=== PATIENT | female | born 1950 | race Caucasian/White ===

== ENCOUNTER 2022-06-28 05:54 | Inpatient (IN) ==
--- NOTE | 2022-06-21 10:53 | Anesthesiology Consultation ---
Date of Service June 21, 2022 Assessment & Plan (1) Encounter for pre-operative examination: - awaiting cardiology optimization note. - check BSG am DOS. - abnormal pre-op EKG dated 04/11/22, same date as cardio evaluation below. Pt reported dyspnea with exertion with stairs per PAT wildlife conservation officer call. Case discussed with Dr. Olmstead who advised sending optimization note to cardiology to confirm if patient is acceptable to proceed or if further evaluation/testing needed prior to surgery. - cardiology 04/27/22: "...we have evaluated Eliana Monday preoperatively on 04/11/2022...may hold her Xarelto for 3 days before her urology procedure...restart it as soon as possible..." - COVID screening: Per property assessment monitor on 06/20/2022: Travel screen negative. Now more than 10 days from symptom onset, reports symptoms have resolved. Negative home test, pt did not complete PCR test. Chart Review Chart Review: Pending: Refer to Additional Notes / Consult section and Patient NOT seen in Pre Admission Testing History Surgery Operation Date: 06/28/22 07:30 Proposed Procedures p Robotic assisted Abdominal Sacrocolpopexy, Possible Anterior and Posterior Repair, - Luis Manuel Willis MD s Possible Mid Urethral Sling Placement - Luis Manuel Willis MD Height/Weight Height: 5 ft Weight: 74.843 kg Allergies Allergy/AdvReac Type Severity Reaction Status Date / Time lanolin AdvReac Unknown Rash Verified 06/20/22 10:06 augmentin AdvReac Unknown Hives Uncoded 06/20/22 10:06 plantain weed AdvReac Unknown Rash Uncoded 06/20/22 10:06 Medications Home Medications Medication Instructions Recorded Confirmed Last Taken Lactobacillus acidophilus 1 10 mg PO QAM 03/14/22 06/20/22 Unknown billion cell capsule amitriptyline 25 mg tablet 25 mg PO QPM 03/14/22 06/20/22 Unknown atorvastatin 10 mg tablet 10 mg PO QPM 03/14/22 06/20/22 Unknown blood sugar diagnostic (Contour 03/14/22 03/14/22 Unknown Next Test Strips) cholecalciferol (vitamin D3) 125 50,000 unit PO QAM 03/14/22 06/20/22 Unknown mcg (5,000 unit) capsule dapagliflozin 10 mg tablet 10 mg PO QAM 03/14/22 06/20/22 Unknown (Farxiga) ezetimibe 10 mg tablet (Zetia) 10 mg PO QPM 03/14/22 06/20/22 Unknown flecainide 100 mg tablet 100 mg PO BID 03/14/22 06/20/22 Unknown fluticasone 100 mcg-salmeterol 50 1 inh inhalation BID PRN Shortness 03/14/22 06/20/22 Unknown mcg/dose blistr powdr for Of Breath Or Wheezing inhalation (Advair Diskus) fluticasone propionate 50 1 spray intranasal UD PRN Allergy 03/14/22 06/20/22 Unknown mcg/actuation nasal Symptoms spray,suspension (Children's Flonase Allergy Relief) glimepiride 2 mg tablet 2 mg PO BID 03/14/22 06/20/22 Unknown hydrocortisone 2.5 % topical cream 1 applic topical BID PRN Skin 03/14/22 06/20/22 Unknown Irritation insulin detemir U-100 100 unit/mL 100 unit subcut BID 03/14/22 06/20/22 Unknown (3 mL) subcutaneous pen (Levemir FlexTouch U-100 Insulin) ketoconazole 2 % topical cream 1 applic topical DAILY PRN Rash 03/14/22 06/20/22 Unknown levothyroxine 50 mcg capsule 50 mcg PO QAM 03/14/22 06/20/22 Unknown losartan 25 mg tablet 25 mg PO QPM 03/14/22 06/20/22 Unknown metoprolol succinate 100 mg 100 mg PO QPM 03/14/22 06/20/22 Unknown tablet,extended release 24 hr (Toprol XL) montelukast 10 mg tablet 10 mg PO QPM 03/14/22 06/20/22 Unknown multivitamin 1 tab PO QAM 03/14/22 06/20/22 Unknown omeprazole 20 mg capsule,delayed 20 mg PO QAM 03/14/22 06/20/22 Unknown release rivaroxaban 20 mg tablet (Xarelto) 20 mg PO QPM 03/14/22 06/20/22 Unknown azithromycin 500 mg tablet 500 mg PO QAM 06/20/22 06/20/22 Unknown (Zithromax) liraglutide 0.6 mg/0.1 mL (18 mg/3 1.8 mg subcut QPM 06/20/22 06/20/22 Unknown mL) subcutaneous pen injector (Victoza 3-Manuel) Past Medical History Medical History (Updated 06/21/22 @ 11:02 by Keila Mcgill PA-C) Asthma well controlled, has not used advair in 2 yrs Bladder prolapse Cystocele Degenerative lumbar disc Fibromyalgia GERD (gastroesophageal reflux disease) HTN (hypertension) Hx of atrial flutter follows w/ Dr Box [facility] last visit ? 2021 Hypothyroidism IBS (irritable bowel syndrome) Lumbar spinal stenosis On anticoagulant therapy xarelto daily Sinus infection 06/17/22 ON ZITHROMAX FOR SINUS INFECTION- SYMPTOMS RESOLVED Sleep apnea cpap Type 2 diabetes mellitus IDDM Urinary incontinence Past Family History Family History Mother Diabetes Lupus Heart disease Brother Pancreatic cancer Heart disease Diabetes Daughter Thyroid disease Father Myocardial infarction Heart disease Past Surgical History Surgical History H/O colonoscopy H/O: hysterectomy History of carpal tunnel release RIGHT Hx of cataract extraction Hx of sinus surgery Hx of tonsillectomy Hx of tubal ligation Social History Smoking Status: Former smoker tobacco type: cigarettes Do You Dip or Chew Tobacco: No Smoking End Date: "QUIT MANY YRS AGO" Hx Alcohol Use: Yes alcohol intake frequency: holidays/special occasions only Hx Substance Use: No substance use type: does not use Lab Results Anesthesia Preop Results Results Anesthesia Widget: WBC 10.15 K/uL (4.8-10.8) 04/28/22 Hgb 12.5 g/dL (12.0-16.0) 04/28/22 Hct 38.9 % (37.0-47.0) 04/28/22 Plt 354 K/uL (130.0-400.0) 04/28/22 Na 133 mmol/L L 04/28/22 K 4.5 mmol/L (3.5-5.1) 04/28/22 Cl 102 mmol/L (98-107) 04/28/22 CO2 26.0 mmol/L (21-32) 04/28/22 BUN 19.9 mg/dL H 04/28/22 Creat 0.67 mg/dL (0.6-1.2) 04/28/22 Glucose Level 98 mg/dL (70-99) 04/28/22 Urine Color Other 04/28/22 Urine Appearance Clear 04/28/22 Urine pH 5.5 (4.5-7.5) 04/28/22 Urine Specific [place] 1.013 (1.000-1.030) 04/28/22 Urine Protein Negative 04/28/22 Urine Glucose (UA) Negative 04/28/22 Urine Ketones Negative 04/28/22 Urine Blood Negative 04/28/22 Urine Nitrite Negative 04/28/22 Urine Bilirubin Negative 04/28/22 Urine Leukocyte Esterase Trace 04/28/22 Testing Electrocardiogram Date: 04/11/22 Sinus rhythm with 1st degree AV block, rate [address] & T wave abnormality, consider anterior ischemia Chest X-Ray Date: 04/28/22 No acute cardiopulmonary findings Mild left lower lung atelectasis or scarring Echocardiogram Date: 02/12/19 EF 56% Mild LVH Normal LV wall motion No valve pathology Stress Test Date: 02/13/19 Pharmacologic No evidence of ischemic change or old myocardial infarct EF 64% Normal LV wall motion
[2022-06-28] MEDS ORDERED: ceFAZolin 2000MG 2,000 MG/15 ML SYR IV SCH ×2 (06:00→17:00)
[2022-06-28] MEDS ORDERED: LR 15ML/HR IV SCH (06:00)
--- NOTE | 2022-06-28 06:55 | History & Physical Report ---
Date of Service June 28, 2022 Assessment & Plan (1) Bladder prolapse: Plan: We reviewed the plan for robotic laparoscopic sacrocolpopexy. We reviewed the risks and benefits of this procedure. We also discussed the possibility for mid urethral sling placement or anterior posterior repair, depending on how the repair looks after the initial sacrocolpopexy. She expressed understanding and would like to proceed with surgery. History of Present Illness Primary Care Provider: John Gilbert MD This is a 72-year-old female previously seen in the urology office for pelvic organ prolapse possible stress incontinence. At the time of that visit we elected to proceed with robot-assisted sacrocolpopexy. She presents to the OR today for a procedure. She denies any changes in her overall health or in her symptoms. She still has a sense of lower abdominal pressure and some urinary leakage. Allergies Allergy/AdvReac Type Severity Reaction Status Date / Time lanolin AdvReac Unknown Rash Verified 06/28/22 06:09 augmentin AdvReac Unknown Hives Uncoded 06/20/22 10:06 plantain weed AdvReac Unknown Rash Uncoded 06/20/22 10:06 Home Medications Medication Instructions Recorded Confirmed Type Lactobacillus acidophilus 1 10 mg PO QAM 03/14/22 06/28/22 History billion cell capsule amitriptyline 25 mg tablet 25 mg PO QPM 03/14/22 06/28/22 History atorvastatin 10 mg tablet 10 mg PO QPM 03/14/22 06/28/22 History blood sugar diagnostic (Contour 03/14/22 03/14/22 History Next Test Strips) cholecalciferol (vitamin D3) 125 50,000 unit PO QAM 03/14/22 06/28/22 History mcg (5,000 unit) capsule dapagliflozin 10 mg tablet 10 mg PO QAM 03/14/22 06/28/22 History (Farxiga) ezetimibe 10 mg tablet (Zetia) 10 mg PO QPM 03/14/22 06/28/22 History flecainide 100 mg tablet 100 mg PO BID 03/14/22 06/28/22 History fluticasone 100 mcg-salmeterol 50 1 inh inhalation BID PRN Shortness 03/14/22 06/20/22 History mcg/dose blistr powdr for Of Breath Or Wheezing inhalation (Advair Diskus) fluticasone propionate 50 1 spray intranasal UD PRN Allergy 03/14/22 06/20/22 History mcg/actuation nasal Symptoms spray,suspension (Children's Flonase Allergy Relief) glimepiride 2 mg tablet 2 mg PO BID 03/14/22 06/28/22 History hydrocortisone 2.5 % topical cream 1 applic topical BID PRN Skin 03/14/22 06/28/22 History Irritation insulin detemir U-100 100 unit/mL 100 unit subcut BID 03/14/22 06/28/22 History (3 mL) subcutaneous pen (Levemir FlexTouch U-100 Insulin) ketoconazole 2 % topical cream 1 applic topical DAILY PRN Rash 03/14/22 06/20/22 History levothyroxine 50 mcg capsule 50 mcg PO QAM 03/14/22 06/28/22 History losartan 25 mg tablet 25 mg PO QPM 03/14/22 06/28/22 History metoprolol succinate 100 mg 100 mg PO QPM 03/14/22 06/28/22 History tablet,extended release 24 hr (Toprol XL) montelukast 10 mg tablet 10 mg PO QPM 03/14/22 06/28/22 History multivitamin 1 tab PO QAM 03/14/22 06/28/22 History omeprazole 20 mg capsule,delayed 20 mg PO QAM 03/14/22 06/28/22 History release rivaroxaban 20 mg tablet (Xarelto) 20 mg PO QPM 03/14/22 06/28/22 History azithromycin 500 mg tablet 500 mg PO QAM 06/20/22 06/28/22 History (Zithromax) liraglutide 0.6 mg/0.1 mL (18 mg/3 1.8 mg subcut QPM 06/20/22 06/28/22 History mL) subcutaneous pen injector (Victoza 3-Manuel) Past Med/Surg History Medical History Asthma well controlled, has not used advair in 2 yrs Bladder prolapse Cystocele Degenerative lumbar disc Fibromyalgia GERD (gastroesophageal reflux disease) HTN (hypertension) Hx of atrial flutter follows w/ Dr Box [facility] last visit ? 2021 Hypothyroidism IBS (irritable bowel syndrome) Lumbar spinal stenosis On anticoagulant therapy xarelto daily Sinus infection 06/17/22 ON ZITHROMAX FOR SINUS INFECTION- SYMPTOMS RESOLVED Sleep apnea cpap Type 2 diabetes mellitus IDDM Urinary incontinence Surgical History H/O colonoscopy H/O: hysterectomy History of carpal tunnel release RIGHT Hx of cataract extraction Hx of sinus surgery Hx of tonsillectomy Hx of tubal ligation Family History Mother Diabetes Lupus Heart disease Brother Pancreatic cancer Heart disease Diabetes Daughter Thyroid disease Father Myocardial infarction Heart disease Social History Smoking Status: Former smoker Smoking End Date: "QUIT MANY YRS AGO"; Second Hand Exposure: No; Do You Dip or Chew Tobacco: No; Tobacco Cessation Education Requested by Patient: No Hx Alcohol Use: Yes Hx Substance Use: No Preferred Language: Kinyarwanda Communication Ability: Effective General Farmworker Required: No Beliefs That Will Affect Care: None marital status: Current Living Situation: Spouse current occupational status: retired Other Information That Helps Us Care for You: No Feels Safe at Home: Yes Safety Concerns: Feels Safe At This Time Assistive Devices: CPAP and Glasses Review of Systems 14 point review of systems negative except for otherwise indicated. Physical Exam Constitutional: well developed and well nourished; no acute distress Eyes: + anicteric sclerae; pupils not irregular Respiratory: normal respiratory effort; no respiratory distress, does not use accessory muscles and no cough Cardiovascular: well perfused Gastrointestinal (Abdomen): Inspection/Auscultation: abdomen normal to inspection; abdomen not distended Musculoskeletal: Extremities: extremities normal to inspection Skin: normal turgor; no rashes and no lesions Neurologic: moves all extremities and awake Psychiatric: Orientation: alert and oriented x 3 Results & Data ([facility]) Vital Signs (Past 12 Hours) Vital Signs Temp Pulse Resp BP Pulse Ox O2 Del Method 06/28/22 06:18 36.7 C 65 20 148/84 H 96 Room Air
[2022-06-28] MEDS ORDERED: fentaNYL citrate 100 MCG/2 ML VIAL ONE (07:10)
[2022-06-28] MEDS ORDERED: DEXAMETHASONE SOD INJ 4 MG/ML VIAL ONE (07:10)
[2022-06-28] MEDS ORDERED: ROCURONIUM BROMIDE 10 MG/ML 5 ML VIAL IV ONE (07:10)
[2022-06-28] MEDS ORDERED: ONDANSETRON INJ 2 MG/ML 2 ML VIAL ONE ×2 (07:10→11:40)
[2022-06-28] MEDS ORDERED: LIDOCAINE 2% MPF LOCAL 5 ML VIAL INFIL ONE (07:10)
[2022-06-28] MEDS ORDERED: PROPOFOL IV EMULSION 10 MG/ML 20 ML VIAL IV ONE (07:10)
[2022-06-28] MEDS ORDERED: MIDAZOLAM HCL 1 MG/ML 2ML VIAL ONE (07:10)
[2022-06-28] MEDS ORDERED: BUPIVACAINE 0.5 % 5 MG/1 ML MPF 30ML VIAL ONE (07:27)
[2022-06-28] MEDS ORDERED: ceFAZolin 330 MG/ML 1 GM VIAL ONE (07:27)
[2022-06-28] MEDS ORDERED: PROMETHAZINE HCL 12.5 MG in SODIUM CHLORIDE 0.9% 50 ML IV PRN (08:01)
[2022-06-28] MEDS ORDERED: LABETALOL HCL IV 5 MG/ML 20ML IV PRN (08:01)
[2022-06-28] MEDS ORDERED: FLUMAZENIL 0.1 MG/1 ML 10 ML VIAL IV PRN (08:01)
[2022-06-28] MEDS ORDERED: ePHEDrine sulfate 50 MG/ML AMP IV PRN (08:01)
[2022-06-28] MEDS ORDERED: HYDROmorphone INJ 1 MG/ML SYRINGE IV PRN (08:01)
[2022-06-28] MEDS ORDERED: ONDANSETRON INJ 2 MG/ML 2 ML VIAL IV PRN ×2 (08:01→15:30)
[2022-06-28] MEDS ORDERED: NALOXONE HCL 0.4 MG/1 ML VIAL/CARP IV PRN (08:01)
[2022-06-28] MEDS ORDERED: ATROPINE SULFATE 0.1 MG/ML 10ML SYR IV PRN (08:01)
[2022-06-28] MEDS ORDERED: fentaNYL citrate 100 MCG/2 ML VIAL IV PRN (08:01)
[2022-06-28] MEDS ORDERED: HYDROmorphone INJ 2 MG/ML SYR/VIAL ONE (09:00)
[2022-06-28] MEDS ORDERED: ESMOLOL HCL INJ 10 MG/ML 10ML VIAL IV ONE (11:40)
--- NOTE | 2022-06-28 12:43 | Post Operative Brief Note ---
PG Immediate Post Op with CF Date of Surgery June 28, 2022 Pre & Post Diagnosis Operation Date: 06/28/22 07:30 Pre-Op Diagnosis: Bladder Prolapse, Post-Op Diagnosis: Bladder Prolapse, I identified the patient and participated in the time-out.: Yes Procedure Operation Date: 06/28/22 07:30 Actual Procedures p Robotic Assisted Laparoscopic Abdominal Sacrocolpopexy and Cystoscopy - Luis Manuel Willis MD Surgeon Luis Manuel Willis MD Dive Supervisor JEROMY Temple Estimated Blood Loss 10 Findings Consistent with Post-Op Diagnosis Specimens Specimen Description: None per surgeon Drains John Catheter (18 Fr. John cathter inserted by Dr. Willis. Draining clear yellow urine, anesthesia to monitor urine output. ) Anesthesia Type General Complications none Disposition Accompanied Patient To Recovery: Yes Disposition: Recovery Room
--- NOTE | 2022-06-28 12:51 | Operative Report ---
PG Post Operative Report Pre & Post Diagnosis Operation Date: 06/28/22 07:30 Pre-Op Diagnosis: Bladder Prolapse Post-Op Diagnosis: Bladder Prolapse I identified the patient and participated in the time-out.: Yes Procedure Operation Date: 06/28/22 07:30 Actual Procedures p Robotic Assisted Laparoscopic Abdominal Sacrocolpopexy and Cystoscopy, Lysis of adhesions (extensive) - Luis Manuel Willis MD Surgeon Luis Manuel Willis MD Clinical Provider Trainer JEROMY Temple Estimated Blood Loss 10 Findings Consistent with Post-Op Diagnosis Specimens None Drains 16 [place] John catheter per urethra Anesthesia Type General Complications none Disposition Accompanied Patient To Recovery: Yes Disposition: Recovery Room Indications This is a 72-year-old female who was recently evaluated in the urology office for concerns of a vaginal bulge. She presents to the OR today for robot- assisted sacrocolpopexy. We also had discussed the possibility of mid urethral sling placement. Description of Procedure Patient was identified and informed consent was confirmed. She was then brought to the operating room where general anesthesia was initiated. She was placed in lithotomy position with all pressure points appropriately padded. Her abdomen was prepped with ChloraPrep and her perineum and genitals were prepped with Be tadine. She was then draped in sterile fashion and a timeout was performed. An incision was made approximately 2 cm above the umbilicus. Using a Veress needle entry into the peritoneum was obtained. Good position was confirmed with negative aspiration, successful drop test and low initial pressure when starting insufflation. The abdomen was insufflated to 15 mmHg. The first robotic port was then placed in the same location. The robotic camera port was then inserted and used to survey the abdomen. She was placed in 26 degrees of Trendelenburg. She had significant adhesions in the lower midline and extending over to the right lower quadrant. The left wall of the abdomen was clear, therefore 2 additional robot ports were placed under direct visualization on the left side. I then used laparoscopic scissors to perform a lysis of adhesions. Approximately 45 minutes were spent on lysis of adhesions. During this process, the fourth robotic port was placed on the right side and a 12 mm assistance port was placed in the right lower quadrant. These ports were also used to facilitate lysis of adhesions. The robot was then docked. Once the lesions were cleared and the sigmoid/rectum could be reflected down away from the bladder, the bladder was filled with 120 mL of saline to delineate the anatomy. The vaginal retractor was then inserted and used to deflect the vagina posteriorly. A peritoneal incision was made and then dissection was carried down into the plane between the anterior vagina and the bladder. Approximately 4 to 5 cm of this area was exposed to allow placement of the mesh. The vagina was then deflected anteriorly and dissection was carried along the posterior wall of the vagina to create a landing zone for the mesh. Sigmoid colon was then retracted laterally to expose the sacral promontory. The bricklayer's assistant was used to palpate this area with the bowel grasper, then a peritoneal incision was created over the sacrum and dissection was carried down to expose approximately a 2 cm region of the anterior longitudinal ligament. A tunnel was made under the peritoneum from the sacral incision down along the right wall of the pelvis to meet with the incision at the vaginal apex. Two 0-gortex sutures were preplaced in the anterior longitudinal ligament over the sacral promontory. An Upsilon Y mesh was then passed into the abdomen. The apex of the wire was fixed to the apex of the vagina using interrupted 2-0 Vicryl sutures. The anterior portion was then laid down in the area that had been exposed and secured using interrupted 2-0 Vicryl sutures, then quilted in place using running 3-0 V lock. The posterior limb of the Y was fixed to the posterior aspect of the vagina in a similar fashion using interrupted 2-0 Vicryl's then a running serpentine 3-0 lock. The tail of the Y was then passed up toward the sacral promontory through the subperitoneal tunnel. Vaginal retractor was removed and the mesh was tensioned. Examination revealed good correction of her prolapse. The bricklayer's assistant then held the mesh in place while I passed the [place] sutures through the mesh then secured in place with the sutures. The peritoneum incisions were then closed using running 2-0 Vicryl sutures. At this point there was good hemostasis. Cystoscopy was then performed using the 70 degree lens. No sutures were identified within the bladder. There was bilateral efflux from the ureteral orifices. The robot was de-docked. The 12 mm bricklayer's assistant port was then closed using 0 Vicryl suture in the fascia. All incisions were anesthetized with 0.5% Marcaine. Skin was closed using buried interrupted 4-0 Monocryl sutures, then with a layer of Dermabond. The patient was then awakened from general anesthesia and brought to the PACU in stable condition. All sponge and instrument counts were correct at the end of the case. Of note, JEROMY Temple acted as the bricklayer's assistant for the duration of the case. She provided assistance with positioning, gaining access, passing sutures and instruments, helping with retraction and tensioning of the mesh and with closing. I attest to the content of the Intraoperative Record and any orders documented therein. Any exceptions are noted below.
--- NOTE | 2022-06-28 13:37 | Anesthesiology Progress Note ---
Date of Service June 28, 2022 Anesthesia Post Procedure Vital Signs Vital Signs: Temp Pulse Pulse Resp BP Pulse Ox O2 Del Method 06/28/22 13:15 56 L 12 152/67 H 94 Oxymask 06/28/22 13:05 52 L 10 L 162/66 H 95 Oxymask 06/28/22 12:55 55 L 12 155/69 H 95 Oxymask 06/28/22 12:46 36.5 C 56 L 14 159/70 H 96 Oxymask 06/28/22 06:18 36.7 C 65 20 148/84 H 96 Room Air O2 Flow Rate 06/28/22 13:15 3 06/28/22 13:05 4 06/28/22 12:55 4 06/28/22 12:46 5 06/28/22 06:18 Transfer of Care Handoff Completed per policy Notes Mental Status: alert / awake / arousable Patient Amnestic to Procedure: Yes Nausea / Vomiting: adequately controlled Pain: adequately controlled Airway Patency, RR, SpO2: stable & adequate BP & HR: stable & adequate Hydration State: stable & adequate Anesthetic Complications: no major complications apparent
[2022-06-28] MEDS ORDERED: IBUPROFEN 200 MG TAB PO PRN (15:30)
[2022-06-28] MEDS ORDERED: MoRPHine SULFATE 2 MG/ML CARP IV PRN (15:30)
[2022-06-28] MEDS ORDERED: oxyCODONE HCL IR 5 MG TAB (IMMEDIATE RELEASE) PO PRN ×2 (15:30)
[2022-06-28] MEDS ORDERED: LACTATED RINGER'S 1,000 ML IV SCH (15:30)
[2022-06-28] MEDS ORDERED: PHARMACY GLYCEMIC MGMT CONSULT PRN (15:30)
[2022-06-28] MEDS ORDERED: MoRPHine SULFATE 4 MG/ML 1 ML CARP\\VIAL IV PRN (15:30)
[2022-06-28] MEDS ORDERED: FLUTICASONE/SALMETEROL 100/50 (ADVAIR) 14 PUFF/1 INHALER INH PRN (15:30)
[2022-06-28] MEDS ORDERED: oxyCODONE HCL IR 5 MG TAB (IMMEDIATE RELEASE) ONE (15:43)
[2022-06-28] MEDS ORDERED: INSULIN ASPART PER UNIT SC SCH (16:30)
--- NOTE | 2022-06-28 16:36 | Discharge Summary ---
Date of Service June 28, 2022 Admission HPI Per Admitting Provider This is a 72-year-old female previously seen in the urology office for pelvic organ prolapse possible stress incontinence. At the time of that visit we elected to proceed with robot-assisted sacrocolpopexy. She presents to the OR today for a procedure. She denies any changes in her overall health or in her symptoms. She still has a sense of lower abdominal pressure and some urinary leakage. Admission Exam Per Admitting Provider Constitutional well developed and well nourished; no acute distress Eyes + anicteric sclerae; pupils not irregular Respiratory normal respiratory effort; no respiratory distress, does not use accessory muscles and no cough Cardiovascular well perfused Gastrointestinal (Abdomen) Soft, nontender. Surgical scars in the right upper quadrant from prior cholecystectomy and lower midline from hysterectomy. Musculoskeletal Extremities: extremities normal to inspection Skin normal turgor; no rashes and no lesions Neurologic moves all extremities and awake Psychiatric Orientation: alert and oriented x 3 Genitourinary Normal external female genitalia. Prominent bulge consistent with stage III prolapse. Exam with half of the speculum indicates the anterior and apical compartments are not well supported. The posterior compartment is fairly well supported. Principal Diagnosis Pelvic organ prolapse Discharge Exam Constitutional well developed and well nourished; no acute distress Eyes + anicteric sclerae; pupils not irregular Respiratory normal respiratory effort; no respiratory distress, does not use accessory muscles and no cough Gastrointestinal (Abdomen) Inspection/Auscultation: abdomen normal to inspection; abdomen not distended Musculoskeletal Extremities: extremities normal to inspection Skin normal turgor; no rashes and no lesions Neurologic moves all extremities and awake Psychiatric Orientation: alert and oriented x 3 Discharge Data Allergies Allergy/AdvReac Type Severity Reaction Status Date / Time amoxicillin [From Augmentin] Allergy Hives Verified 06/28/22 16:11 clavulanic acid Allergy Hives Verified 06/28/22 16:11 [From Augmentin] lanolin AdvReac Unknown Rash Verified 06/28/22 06:09 plantain weed AdvReac Unknown Rash Uncoded 06/20/22 10:06 Procedures Performed Operation Date: 06/28/22 07:30 Actual Procedures p Robotic Assisted Laparoscopic Abdominal Sacrocolpopexy and Cystoscopy, lysis of adhesions - Luis Manuel Willis MD Hospital Course (1) Bladder prolapse: Plan She underwent robot-assisted laparoscopic sacrocolpopexy on 06/28/2022. Postoperatively she was feeling well, tolerating a diet and ambulating. Although the initial plan was to admit for overnight monitoring, she expressed desire to go home and was subsequently discharged. Total Time Total Time Spent Total Time Spent (In Minutes): 15 Discharge Plan Discharge Items Patient Disposition: Home - Self-Care Reason For Visit: Bladder Prolapse, urinary Incontinence Discharge Diagnosis: Bladder prolapse Activity: Per Instructions section Lifting: No more than 10 pounds Non-emergency contact: Urologist Call non-emergency contact if: your pain is not controlled and your temperature is above 101 Follow-up/Referrals: John Gilbert MD [Primary Care Provider] - Diet: Regular Addtl Attending Provider Instructions: The surgery you had was: Robot-assisted laparoscopic sacrocolpopexy Please take all medications as prescribed and keep all follow-ups as scheduled. Please call our office at [phone] with any questions, concerns or need to reschedule appointments for any reason. We are happy to assist you Medications: Please take all medications as prescribed. For pain control, you can take tylenol every 6 hours alternating with ibuprofen every 6 hours. If you have been prescribed a narcotic pain medication, please take this according to the instructions on the label. You have been prescribed a week of antibiotics (Bactrim = trimethoprim sulfamethoxazole). Please take this as prescribed, twice daily. You can restart your Xarelto on 06/29/2022. Activity: We recommend having someone with you for the first few days after surgery to help care for you. For the first 2 weeks after surgery, we would like you to get up and walk around your house. However, we recommend limit physical activity that would increase your heart rate. This will allow your body to rest and heal. Take naps if you feel tired. Don't lift anything heavier than 10 pounds, mow the law or ride a bicycle until your follow-up appointment. Please avoid long car rides. Home Care: Unless directed otherwise, drink 6 to 8 glasses of water a day (enough to keep your urine light colored). This will also help keep a healthy flow of urine. We recommend using a stool softener such as colace or miralax for the first two weeks to avoid constipation. Wound care: You have surgical glue over your abdominal incisions. This will come off on its own over 2 weeks. You may have increased vaginal drainage over the next several weeks. This is to be expected. No sex for 4 weeks. You may shower as normal. Please avoid tub baths or soaking for about 2 weeks. Follow-up We will have you come to the office in approximately 1 to 2 weeks for wound check, and further follow-up based on that. Call [facility] at [phone] right away if you have any of the following: Chest pain or trouble breathing (call 911 or go to the hospital) Fever of 101F or higher, uncontrolled vomiting Foul-smelling discharge Redness, swelling, warmth, or increased pain at your incision site Drainage, pus, or bleeding from your incision Pending Studies at Discharge: No Stand-Alone Forms: [facility], Sm[facility] Cess[facility] Medications and DC Order Prescriptions: New sulfamethoxazole-trimethoprim [Bactrim DS] 800-160 mg tablet 1 tab PO BID 7 Days Qty: 14 0RF oxycodone 5 mg tablet 5 mg PO Q6 PRN (Reason: pain) Qty: 10 0RF Rx Instructions: For acute postsurgical pain not managed with Tylenol or ibuprofen Continued atorvastatin 10 mg tablet 10 mg PO QPM cholecalciferol (vitamin D3) 125 mcg (5,000 unit) capsule 50,000 unit PO QAM glimepiride 2 mg tablet 2 mg PO BID Farxiga 10 mg tablet 10 mg PO QAM (DME) Contour Next Test Strips Strip See Rx Instructions .ROUTE Rx Instructions: As directed metoprolol succinate [Toprol XL] 100 mg tablet extended release 24 hr 100 mg PO QPM Levemir FlexTouch U-100 Insuln 100 unit/mL (3 mL) insulin pen 100 unit subcut BID Lactobacillus acidophilus 1 billion cell capsule 10 mg PO QAM fluticasone propionate [Children's Flonase Allergy Rlf] 50 mcg/actuation spray,suspension 1 spray intranasal UD PRN (Reason: Allergy Symptoms) Rx Instructions: administer into each nostril Xarelto 20 mg tablet 20 mg PO QPM Rx Instructions: must administer with evening meal ezetimibe [Zetia] 10 mg tablet 10 mg PO QPM amitriptyline 25 mg tablet 25 mg PO QPM hydrocortisone 2.5 % cream 1 applic topical BID PRN (Reason: Skin Irritation) fluticasone propion-salmeterol [Advair Diskus] 100-50 mcg/dose blister with device 1 inh inhalation BID PRN (Reason: Shortness Of Breath Or Wheezing) omeprazole 20 mg capsule,delayed release(DR/EC) 20 mg PO QAM flecainide 100 mg tablet 100 mg PO BID ketoconazole 2 % cream 1 applic topical DAILY PRN (Reason: Rash) multivitamin Tablet 1 tab PO QAM losartan 25 mg tablet 25 mg PO QPM levothyroxine 50 mcg capsule 50 mcg PO QAM montelukast 10 mg tablet 10 mg PO QPM Victoza 3-Manuel 0.6 mg/0.1 mL (18 mg/3 mL) Pen Injector 1.8 mg SUBCUT QPM azithromycin [Zithromax] 500 mg Tablet 500 mg PO QAM Discharge Orders: Discharge Order (Routine); Ordered 06/28/22 Ordered By: Luis Manuel Willis Admission Data Admit Date/Time: 06/28/22 13:07 Attending Provider: Luis Manuel Willis Admit Provider: Luis Manuel Willis Primary Care Provider: John Gilbert Coding Level of Care Code D/C DAY MANAGEMENT <30 MINS Diagnoses Bladder prolapse Time Spent (min) 15
[2022-06-28] MEDS ORDERED: ATORVASTATIN 10 MG TAB PO SCH (21:00)
[2022-06-28] MEDS ORDERED: METOPROLOL SUCC 50MG EXT REL TAB PO SCH (21:00)
[2022-06-28] MEDS ORDERED: LOSARTAN POTASSIUM 25 MG TAB PO SCH (21:00)
[2022-06-28] MEDS ORDERED: DOCUSATE SODIUM 100 MG CAP PO SCH (21:00)
[2022-06-28] MEDS ORDERED: FLECAINIDE ACETATE 100 MG TABLET PO SCH (21:00)
[2022-06-28] MEDS ORDERED: AMITRIPTYLINE HCL 25 MG TAB PO SCH (21:00)
[2022-06-28] MEDS ORDERED: MONTELUKAST SODIUM 10 MG TABLET PO SCH (21:00)
[2022-06-28] MEDS ORDERED: HEPARIN SOD 5,000 UNIT/0.5 ML VIAL SQ SCH (21:00)
[2022-06-28] MEDS ORDERED: EZETIMIBE 10 MG TABLET PO SCH (21:00)
[2022-06-28] MEDS ORDERED: ACETAMINOPHEN 325 MG TAB PO SCH (22:00)
[2022-06-29] MEDS ORDERED: LEVOTHYROXINE SODIUM 50 MCG TABLET PO SCH (06:30)
[2022-06-29] MEDS ORDERED: PANTOprazole 40 MG TAB PO SCH (09:00)
[2022-06-29] MEDS ORDERED: RIVAROXABAN 20 MG TAB PO SCH (21:00)
== END 2022-06-28 18:00 | disposition home or self-care (01) | DRG 748 ==
LOC: ASU 05:54 → PACUINP 13:07 → INTOOBSV 13:07 → OBSVTOIN 13:07